=== PATIENT | female | born 1955 | race Caucasian/White ===

== ENCOUNTER 2019-09-17 10:35 | Outpatient (CLI) | payer MEDICARE, BC ==
[~2019-09-17 10:35] MED LIST: ALPR1TAB7 PO; ASPI1TAB PO; HYDR-4353 PO; NAPR220T67 PO; PREN1TAB75 PO; TERI2.4P SUBCUT; VILA40TA PO
[2019-09-17 12:05] LABS: PARTIAL THROMBOPLASTIN TIME 23 SECONDS (22-32)
== END 2019-09-17 23:59 | disposition home or self-care (01) ==
LOC: LAB 10:35
PROVIDERS: ATTEND Otolaryngology
DX: D69.1 Qualitative platelet defects (principal); J32.0 Chronic maxillary sinusitis; R04.0 Epistaxis
CPT/HCPCS: 36415; 85025; 85610; 85730

== ENCOUNTER 2019-09-18 09:24 | Outpatient (CLI) | payer MEDICARE, BC ==
[2019-09-18 10:39] LABS: BASOPHILS % (AUTO) 0.6 % (0-1); EOSINOPHILS # (AUTO) 0.1 X10'3 (0-0.9); EOSINOPHILS % (AUTO) 2.3 % (0-6); HEMATOCRIT 35.7 % (35.0-45.0); LYMPHOCYTES # (AUTO) 1.4 X10'3 (1.1-4.8); LYMPHOCYTES % (AUTO) 23.1 % (21-51); MEAN CORPUSCULAR HEMOGLOBIN 35.4 PG (27.0-31.0); MEAN CORPUSCULAR HGB CONC 33.7 g/dL (33.0-36.5); MEAN CORPUSCULAR VOLUME 105.1 FL (78-98); MEAN PLATELET VOLUME 7.9 FL (7.4-10.4); MONOCYTES # (AUTO) 0.3 X10'3 (0-0.9); MONOCYTES % (AUTO) 5.3 % (2-12); NEUTROPHILS % (AUTO) 68.7 % (42-75); PLATELET COUNT 314 X10'3 (140-440); RED CELL DISTRIBUTION WIDTH 12.9 % (11.5-14.5); WHITE BLOOD COUNT 5.9 X10'3 (4.5-11.0)
[2019-09-18 13:21] LABS: PLATELET FUNCTION (ADP) 99 SECONDS (63-104)
== END 2019-09-18 23:59 | disposition home or self-care (01) ==
LOC: LAB 09:24
PROVIDERS: ATTEND Otolaryngology
DX: D69.1 Qualitative platelet defects (principal); J32.0 Chronic maxillary sinusitis
CPT/HCPCS: 36415; 85025; 85576